=== PATIENT | female | born 1990 | race African-American/Black ===

== ENCOUNTER 2021-02-25 10:21 | Emergency (ER) | payer OTHER ==
[~2021-02-25] VITALS: Ht 152.4 cm; Wt 81.7 kg
[~2021-02-25 10:21] MED LIST: BENTYL20 MG PO; HYDROCODON-ACE1 EACH PO; OMEPRAZOLE; ZOFRAN ODT4 MG PO
[2021-02-25 11:06] LABS: ABSOLUTE BASOPHILS 0.1 thou/uL (0.0-0.2); ABSOLUTE EOSINOPHILS 0.1 thou/uL (0.0-0.7); ABSOLUTE LYMPHOCYTES 1.9 thou/uL (0.8-5.3); ABSOLUTE MONOCYTES 0.4 thou/uL (0.0-1.2); ABSOLUTE NEUTROPHILS 4.8 thou/uL (1.6-8.1); BASOPHILS 0.8 %; EOSINOPHILS 0.9 %; HEMATOCRIT 36.8 % (37.0-47.0); LYMPHOCYTES 26.3 %; MCH 26.4 pg (26.0-34.0); MCHC 32.5 g/dL (28.0-37.0); MCV 81.1 fL (80.0-100.0); MPV 8.7 fl. (7.2-11.1); NUCLEATED RBCS 0 /100WBC; PLATELET COUNT* 217 thou/uL (150-400); RBC 4.53 mil/uL (4.20-5.00); RDW-CV 13.6 % (10.5-14.5); WBC 7.2 thou/uL (4.0-11.0)
[2021-02-25 11:07] LABS: URINE BILIRUBIN NEGATIVE (Negative); URINE BLOOD 1+ (Negative); URINE CLARITY CLEAR; URINE COLOR YELLOW; URINE GLUCOSE-RANDOM NEGATIVE (Negative); URINE KETONES NEGATIVE (Negative); URINE LEUKOCYTES-REFLEX NEGATIVE (Negative); URINE NITRITE-REFLEX NEGATIVE (Negative); URINE PROTEIN NEGATIVE (Negative); URINE UROBILINOGEN 0.2 E.U./dl (0.2-1.0)
[2021-02-25 11:13] LABS: SQUAMOUS 4-10 Moderate /LPF (0-3); URINE RBC 0-2 Rare /HPF (0-2); URINE WBC-REFLEX None Seen /HPF (0-5)
[2021-02-25 11:14] LABS: CASTS None Seen /LPF (None Seen); CRYSTALS None Seen /LPF (None Seen); MUCUS 0-3 Light strn/LPF (None Seen)
[2021-02-25 11:16] LABS: CALCIUM 8.9 mg/dL (8.5-10.1); CREATININE 0.9 mg/dL (0.6-1.3)
[2021-02-25 11:21] LABS: ALBUMIN 3.7 g/dL (3.4-5.0); TOTAL BILIRUBIN 0.3 mg/dL (<0.1-1.0); TOTAL PROTEIN 7.7 g/dL (6.4-8.2)
[2021-02-25] MEDS ORDERED: NAPROSYN500 MG PO (14:33)
[2021-02-25] MEDS ORDERED: DICYCLOMINE HCL20 MG PO (14:33)
[2021-02-25] MEDS ORDERED: CEPHALEXIN500 MG PO (14:33)
[2021-02-25] MEDS ORDERED: ZOFRAN ODT4 MG PO (14:33)
[2021-02-25 14:46] VITALS: BP 126/69
== END 2021-02-25 14:47 | disposition home or self-care (01) ==
LOC: M.ERS 10:21
PROVIDERS: Nurse Practitioner Family
DX: D25.9 Leiomyoma of uterus, unspecified (principal); R30.0 Dysuria; Z90.49 Acquired absence of other specified parts of digestive tract; Z98.890 Other specified postprocedural states